=== PATIENT | female | born 1970 | race Caucasian/White ===

== ENCOUNTER 2017-07-03 16:37 | Inpatient (IN) | payer OTHER ==
[2017-07-03 16:52] VITALS: BMI 47.5
--- NOTE | 2017-07-03 17:38 | PDOC ---
History of Present Illness - General Chief Complaint: Wound Infection Stated Complaint: INFECTION Time Seen by Provider: 07/03/17 17:36 - History of Present Illness Initial Comments: 07/03/17 18:00 The patient is a 46 year old female with no significant PMH who presents for evaluation of right lower leg infection. The patient reports onset of symptoms 6 days ago in the [place] with redness to the right lower extremity. She was placed on antibiotics that she dose not know in the [facility] before traveling to the on 5 days ago. She reports fevers at home initial that have resolved since taking the antibiotics. However she notes worsening swelling in the lower extremity as well as worsening warmth and redness. She denies SOB, chest pain, abdominal pain, or changes with urination or bowel movements. Past History - Past Medical History Allergies/Adverse Reactions: Allergies Allergy/AdvReac Type Severity Reaction Status Date / Time No Known Allergies Allergy Verified 07/03/17 16:52 Home Medications: Ambulatory Orders NK [No Known Home Medication] 07/03/17 Thyroid Disease: No - Suicide/Smoking/Psychosocial Hx Smoking History: Unknown if ever smoked Have you smoked in the past 12 months: No Information on smoking cessation initiated: No Hx Alcohol Use: No Drug/Substance Use Hx: No Substance Use Type: None Review of Systems - Review of Systems Comments:: 07/03/17 18:45 Constitutional: Fevers, chills. No fatigue, malaise HEENT: No Rhinorrhea, nasal congestion, Cardiovascular: No chest pain, syncope, palpitations, lightheadedness Respiratory: No Cough, SOB, Hemoptysis, Gastrointestinal: No Abdominal pain, Nausea, Vomiting, Constipation, Diarrhea, Melena Genitourinary: No Dysuria, Frequency, Urgency, Hesitancy, Hematuria, Flank pain Musculoskeletal: No Myalgia, arthralgia Skin: Lower extremity skin infection. No rashes, bruising, pallor Neurologic: No Headache, Dizziness, Numbness, Weakness, or Tingling *Physical Exam - Vital Signs Last Vital Signs Temp Pulse Resp BP Pulse Ox 99.0 F 98 H 18 133/71 100 07/03/17 16:49 07/03/17 16:49 07/03/17 16:49 07/03/17 16:49 07/03/17 16:49 - Physical Exam Comments: 07/03/17 18:48 General Appearance: Nourished. No Apparent Distress HEENT: EOMI, AAMIR. No Pharyngeal Erythema, Tonsillar Exudate, Tonsillar Erythema Neck: No Cervical Lymphadenopathy Respiratory/Chest: Lungs Clear, Normal Breath Sounds. No Crackles, Rales, Rhonchi, Wheezing Cardiovascular: Regular Rhythm, Regular Rate. No Murmur, Gallops, Rubs Gastrointestinal/Abdominal: Normal Bowel Sounds, Soft. No Guarding, Rebound, Tenderness Musculoskeletal: No CVA Tenderness Extremity: Right lower extremity erythema and warmth around the calf with bullue and 2+ pitting edema. Normal Capillary Refill Integumentary: Normal Color, Dry, Warm Neurologic: Fully Oriented, Alert, Normal Mood/Affect, Normal Response, ED Treatment Course - LABORATORY CBC & Chemistry Diagram: 07/04/17 07:40 07/04/17 07:40 Medical Decision Making - Medical Decision Making 07/03/17 18:51 The patient is a 46 year old female with no significant PMH who presents for evaluation of right lower leg infection. Differential includes but not limited to: Epylsis, cellulitis, bullous impetigo, DVT. Given the physical examination of the patient's lower extremity with diffuse bullue and erythema, her symptoms are likely due to worsening eplylsis. We will obtain cbc, cmp, blood cultures, UA to evaluate. We will also obtain a DVT US to evaluate for DVT given her lower extremity edema and recent travel. We will treat her with clindamycin here in the ED. The patient will likely require admission for further management. We will continue to monitor and reassess. *DC/Admit/Observation/Transfer Diagnosis at time of Disposition: admitted
[2017-07-03] MEDS ORDERED: CLINDAMYCIN 600MG PREMIX IVPB 50 ML IVPB ONE ×2 (18:24→18:38)
[2017-07-03 18:58] LABS: MCH 23.7 pg (25.7-33.7); MCHC 31.8 g/dl (32.0-36.0); MEAN CELL VOLUME 74.7 fl (80-96); MEAN PLT VOLUME 8.3 fl (7.5-11.1); NEUTROPHILS 53.1 % (42.8-82.8); PLATELET COUNT 355 K/MM3 (134-434); RDW 16.5 % (11.6-15.6); WHITE BLOOD COUNT 8.6 K/mm3 (4.0-10.0)
[2017-07-03 19:01] LABS: URINE APPEARANCE CLEAR; URINE BILIRUBIN NEGATIVE (NEGATIVE); URINE BLOOD 2+ (NEGATIVE); URINE COLOR LTYELLOW; URINE GLUCOSE (UA) NEGATIVE (NEGATIVE); URINE KETONE NEGATIVE (NEGATIVE); URINE NITRITE NEGATIVE (NEGATIVE); URINE PROTEIN NEGATIVE (NEGATIVE); URINE UROBILINOGEN NEGATIVE mg/dL (0.2-1.0)
--- NOTE | 2017-07-03 19:04 | PDOC ---
*Physical Exam - Vital Signs Last Vital Signs Temp Pulse Resp BP Pulse Ox 99.0 F 98 H 18 133/71 100 07/03/17 16:49 07/03/17 16:49 07/03/17 16:49 07/03/17 16:49 07/03/17 16:49 ED Treatment Course - LABORATORY CBC & Chemistry Diagram: 07/06/17 06:30 07/04/17 07:40 - Medications Given in the ED: ED Medications Discontinued Medications Generic Name Dose Route Start Last Admin Trade Name Freq PRN Reason Stop Dose Admin Clindamycin Phosphate 50 mls @ 100 mls/hr 07/03/17 18:24 07/03/17 18:39 Cleocin 600 Mg Premix Ivpb - IVPB 07/03/17 18:53 100 mls/hr ONCE ONE Administration Medical Decision Making - Medical Decision Making 07/03/17 19:02 Patient signed out to me by Dr. Mart, day team. The patient is a 46F with no PMH who presents with suspected erysipelas and cellulitis. F/u for labs, DVT U/S. Most likely dispo: admit to obs for IV abx. Has received IV clinda in ED. 07/03/17 20:04 US negative for DVT. Will page admitting team for IV abx, obs admission. 07/03/17 22:18 Patient signed out to hospitalist team for IV abx. *DC/Admit/Observation/Transfer Diagnosis at time of Disposition: admitted, Erysipelas
[2017-07-03 19:06] LABS: URINE HYALINE CAST 1 /lpf; URINE MUCUS RARE; URINE RBC 2 /hpf (0-3); URINE WBC 1 /hpf (3-5)
[2017-07-03 19:22] LABS: ALBUMIN 3.1 g/dl (3.4-5.0); ALK PHOS 160 U/L (45-117); ANION GAP 7 (8-16); BILIRUBIN,TOTAL 0.1 mg/dL (0.2-1.0); CALCIUM 8.9 mg/dL (8.5-10.1); CO2 29 mmol/L (21-32); CREATININE 0.6 mg/dL (0.55-1.02); GLUCOSE,RANDOM 105 mg/dL (74-106); SGOT/AST 14 U/L (15-37); SGPT/ALT 22 U/L (12-78); TOT PROT 7.5 g/dl (6.4-8.2)
[2017-07-03 19:23] LABS: CPK 55 IU/L (26-192); TROPONIN I < 0.02 ng/ml (0.00-0.05)
--- NOTE | 2017-07-03 20:09 | PDOC ---
Attending Attestation - Resident Resident Name: Antolin Mart - ED Attending Attestation I have performed the following: I have examined & evaluated the patient, The case was reviewed & discussed with the resident, I agree w/resident's findings & plan, Exceptions are as noted - HPI HPI: 07/03/17 20:04 46-year-old female presents with atraumatic right lower extremity erythema and swelling with some skin desquamation and clear drainage. - Physicial Exam PE: 07/03/17 20:04 Patient is awake and alert, with low-grade fever, nontoxic appearing; CARD: Normal S1, S2; no murmurs, rubs, or gallops RESP: Normal chest excursion with respiration; breath sounds clear and equal bilaterally; no wheezes, rhonchi, or rales ABD: Soft, non-distended; non-tender; no palpable organomegaly, no palpable hernias EXT: RLE: + well demarcated elevated erythematous lessions to the lower leg, with several clear bullae formations, warm and tender to touch, with a small area of disquamation c/w erysepelas SKIN: Warm, see above NEURO: No focal neurological deficiencies. - Medical Decision Making 07/03/17 20:08 46-year-old female presents to the ER with significant right lower extremity erysipelous. Will rule out DVT by Doppler ultrasound. Will obtain CBC/CMP/blood cultures. We'll administer clindamycin. Will place her knob's for IV antibiotic therapy.
[2017-07-03] MEDS ORDERED: BACITRACIN 0.9 GM PACKET ONE (20:14)
[2017-07-03 21:17] LABS: URINE LEUK ESTERASE Negative (NEGATIVE)
--- NOTE | 2017-07-03 22:34 | HP ---
CHIEF COMPLAINT: rash PCP: none HISTORY OF PRESENT ILLNESS: The pt is a 46 year old Fijian speaking female with PMH of lower extremity rash /infection that has been treated for several years. She presents to the hospital complaining of RLE rash, redness that started 6 days ago when she was in [place]. 2-3 days ago she noticed that the blister that was present on the skin ruptured draining clear/yellowish fluid. She measured temperature at home 102 F and had associated chills. The pt reports pain in RLE , especially around the ankle that is constant, 7/10, radiating up. She states that has been treated for infection in RLE for many year with Ampicillin and her infection keeps coming back.The pt denies trauma. She denies SOB, chest pain, abdominal pain, dysuria, muscle pain, joint pain. History was taken when her daughter was at bedside. ER course was notable for: (1)Alk Phos (2)Clindamycin (3)US LE Recent Travel: [place] PAST MEDICAL HISTORY: SRecurrent skin infection in LE PAST SURGICAL HISTORY: none Social History: Smoking:no Alcohol:no Drugs: no Family History: Mother: skin infection Father: healthy Allergies No Known Allergies Allergy (Verified 07/03/17 16:52) HOME MEDICATIONS: Home Medications Medication Instructions Recorded NK [No Known Home Medication] 07/03/17 REVIEW OF SYSTEMS CONSTITUTIONAL: Absent: fever, chills, diaphoresis, generalized weakness, malaise, loss of appetite, weight change HEENT: Absent: rhinorrhea, nasal congestion, throat pain, throat swelling, difficulty swallowing, mouth swelling, ear pain, eye pain, visual changes CARDIOVASCULAR: Absent: chest pain, syncope, palpitations, irregular heart rate, lightheadedness , peripheral edema RESPIRATORY: Absent: cough, shortness of breath, dyspnea with exertion, orthopnea, wheezing, stridor, hemoptysis GASTROINTESTINAL: Absent: abdominal pain, abdominal distension, nausea, vomiting, diarrhea, constipation, melena, hematochezia GENITOURINARY: Absent: dysuria, frequency, urgency, hesitancy, hematuria, flank pain, genital pain MUSCULOSKELETAL: Absent: myalgia, arthralgia, joint swelling, back pain, neck pain SKIN: rash, ruptured blister, Absent: itching, pallor HEMATOLOGIC/IMMUNOLOGIC: Absent: easy bleeding, easy bruising, lymphadenopathy, frequent infections ENDOCRINE: Absent: unexplained weight gain, unexplained weight loss, heat intolerance, cold intolerance NEUROLOGIC: Absent: headache, focal weakness or paresthesias, dizziness, unsteady gait, seizure, mental status changes, bladder or bowel incontinence PSYCHIATRIC: Absent: anxiety, depression, suicidal or homicidal ideation, hallucinations. PHYSICAL EXAMINATION GENERAL: Awake, alert, and fully oriented, in no acute distress. HEAD: Normal with no signs of trauma. EYES: Pupils equal, round and reactive to light, extraocular movements intact, sclera anicteric, conjunctiva clear. No lid lag. EARS, NOSE, THROAT: Ears normal, nares patent, oropharynx clear without exudates. Moist mucous membranes. NECK: Normal range of motion, supple without lymphadenopathy, JVD, or masses. LUNGS: Breath sounds equal, clear to auscultation bilaterally. No wheezes, and no crackles. No accessory muscle use. HEART: Regular rate and rhythm, normal S1 and S2 without murmur, rub or gallop. ABDOMEN: Soft, nontender, not distended, normoactive bowel sounds, no guarding, no rebound, no masses. No hepatomegaly or splenomegaly. MUSCULOSKELETAL: Normal range of motion at all joints. No bony deformities or tenderness. No CVA tenderness. UPPER EXTREMITIES: 2+ pulses, warm, well-perfused. No cyanosis. No clubbing. No peripheral edema. LOWER EXTREMITIES: 2+ pulses, warm, well-perfused. No calf tenderness. No peripheral edema. NEUROLOGICAL: Cranial nerves II-XII intact. Normal speech. Normal gait. PSYCHIATRIC: Cooperative. Good eye contact. Appropriate mood and affect. SKIN: Warm, dry, normal turgor, ruptured blister, superficial ulcer draining small amount of clear fluid, posterior RLE above ankle, redness and warmth from ankle to knee ASSESSMENT/PLAN: The pt is a 46 year old Fijian speaking female with PMH of lower extremity rash /infection that has been treated for several years. She presents to the hospital complaining of RLE rash, redness that started 6 days. She is admitted for erysipelas/cellulitis. Right lower extremity erysipelas/cellulitis-recurrent: -pt was given Clindamycin in ED -ordered wound culture, -will give Vancomucin 1500 mg and Ceftriaxone 2 g qd -f/u blood cultures -f/u ID recommendations -US LE negative for DVT F/E/N: no/no changes/Regula DVT PPX: Heparin sc Disposition med surg Problem List - Problem (1) Erysipelas of lower extremity Code(s): A46 - ERYSIPELAS (2) Cellulitis Code(s): L03.90 - CELLULITIS, UNSPECIFIED Visit type - Emergency Visit Emergency Visit: Yes ED Registration Date: 07/03/17 Care time: The patient presented to the Emergency Department on the above date and was hospitalized for further evaluation of their emergent condition. - New Patient This patient is new to me today: Yes Date on this admission: 07/04/17 - Critical Care Critical Care patient: No
[2017-07-03] MEDS ORDERED: VANCOMYCIN 1,500 MG in DEXTROSE 5%-WATER - 500 ML IVPB ONE (23:53)
--- NOTE | 2017-07-04 01:08 | PN ---
Teaching Attending Note Name of Resident: Marilyn Chery ATTENDING PHYSICIAN STATEMENT I saw and evaluated the patient. Chart, data, and imaging reviewed. I reviewed the resident's note and discussed the case with the resident. I agree with the resident's findings and plan as documented with modifications below. SUBJECTIVE: 46yo woman from with recurrent right lower extremity cellulitis. SHe reports that on Wednesday she experienced subjective fever and chills, worsening right lower extremity erythema. Pt reported regular single time injections of ampicillin for right leg infection. Denied any trauma to site or insect bites. She states that her mother has a similar condition. OBJECTIVE: Last Vital Signs Temp Pulse Resp BP Pulse Ox 98.7 F 74 18 125/72 98 07/03/17 23:25 07/03/17 23:25 07/03/17 23:25 07/03/17 23:25 07/03/17 23:35 heent- AT, nc, moist oral mucosa neck - supple, no masses cv s1+s2+ RRR chest cta b/l abdome soft, nt, obese ext- right lower extremity well demarcated erythematous lesions, warm to touch, mild tenderness to pressure LLE duplex US- negative for DVT Abnormal Lab Results 07/03/17 07/03/17 07/03/17 18:30 18:30 18:50 MCV 74.7 L MCH 23.7 L MCHC 31.8 L RDW 16.5 H Eosinophils % 5.0 H Anion Gap 7 L Total Bilirubin 0.1 L AST 14 L Alkaline Phosphatase 160 H Albumin 3.1 L Urine Blood 2+ H ASSESSMENT AND PLAN: #Recurrent right lower extremity erysypelas/cellultis, weeping, localized to leg. S/p clindamycin in ER. -admit to med/surg -wound culture ordered -blood cx ordered x2 -vancomycin 1.5g q12hrs -ceftriaxone 2g IV q24hrs -ID consult in am #DVT ppx - heparin sc #diet -low fat diet
[2017-07-04] MEDS: ACETAMINOPHEN 325 MG TABLET (FP) PO PRN (02:22)
[2017-07-04 08:26] LABS: MCH 23.7 pg (25.7-33.7); MCHC 31.4 g/dl (32.0-36.0); MEAN CELL VOLUME 75.6 fl (80-96); MEAN PLT VOLUME 7.7 fl (7.5-11.1); PLATELET COUNT 339 K/MM3 (134-434); RDW 16.5 % (11.6-15.6); WHITE BLOOD COUNT 7.5 K/mm3 (4.0-10.0)
[2017-07-04 09:00] LABS: ANION GAP 8 (8-16); CALCIUM 8.4 mg/dL (8.5-10.1); CO2 27 mmol/L (21-32); CREATININE 0.6 mg/dL (0.55-1.02); GLUCOSE,RANDOM 73 mg/dL (74-106)
[2017-07-04] MEDS ORDERED: FLU VACCINE QUAD 60 MCG/0.5 ML (MDV 17-18) IM ONE (10:00)
[2017-07-04] MEDS: CEFTRIAXONE 2 GM in DEXTROSE 5%-WATER - 100 ML IVPB SCH (10:06)
[2017-07-04] MEDS: HEPARIN NA (PORCINE) 5,000 UNITS/ML 1ML VIAL SQ SCH ×2 (10:07→21:18)
--- NOTE | 2017-07-04 12:38 | PN ---
Physical Exam: SUBJECTIVE: Patient seen and examined. She denies pain in right leg, chills. OBJECTIVE: Vital Signs Period Temp Pulse Resp BP Sys/De Leon Pulse Ox Last 24 Hr 97.9 F-98.7 F 74-83 18-18 125-136/62-72 98-98 GENERAL: The patient is awake, alert, and fully oriented, in no acute distress. LUNGS: Breath sounds equal, clear to auscultation bilaterally, no wheezes, no crackles, no accessory muscle use. HEART: Regular rate and rhythm, S1, S2 without murmur, rub or gallop. ABDOMEN: Soft, nontender, nondistended, normoactive bowel sounds, no guarding, no rebound, no hepatosplenomegaly, no masses. EXTREMITIES: 2+ pulses, warm, well-perfused, no edema. Erythema of lower right leg with blistering. Laboratory Results - last 24 hr 07/04/17 07/04/17 07:40 07:40 WBC 7.5 RBC 4.64 Hgb 11.0 Hct 35.1 MCV 75.6 L MCH 23.7 L MCHC 31.4 L RDW 16.5 H Plt Count 339 MPV 7.7 Sodium 138 Potassium 4.6 Chloride 103 Carbon Dioxide 27 Anion Gap 8 BUN 14 Creatinine 0.6 Random Glucose 73 L D Calcium 8.4 L Active Medications Generic Name Dose Route Start Last Admin Trade Name Freq PRN Reason Stop Dose Admin Acetaminophen 650 mg 07/03/17 22:25 07/04/17 02:22 Tylenol - PO 650 mg Q6H PRN Administration FEVER OR PAIN Bacitracin/Polymyxin B Sulfate 1 applic 07/04/17 11:00 Polysporin Ointment - TP DAILY [facility] Heparin Sodium (Porcine) 5,000 unit 07/04/17 10:00 07/04/17 10:07 Heparin - SQ 5,000 unit BID MAXIMILIAN Administration Ceftriaxone Sodium 2 gm/ 100 mls @ 200 mls/hr 07/04/17 10:07/04/17 10:06 Dextrose IVPB 200 mls/hr DAILY MAXIMILIAN Administration ASSESSMENT/PLAN: This is a 46 year old woman with a history of recurrent RLE infection who presented to the ER with redness and blistering of RLE with fever and chills at home. 1. Erysipelas of RLE - Continue Rocephin - Given Clindamycin, Vancomycin last night - Bacitracin to open wound - ID consult Visit type - Emergency Visit Emergency Visit: Yes ED Registration Date: 07/03/17 Care time: The patient presented to the Emergency Department on the above date and was hospitalized for further evaluation of their emergent condition. - New Patient This patient is new to me today: Yes Date on this admission: 07/04/17 - Critical Care Critical Care patient: No - Discharge Referral Referred to [facility] Med P.C.: No
--- NOTE | 2017-07-04 13:32 | PN ---
Progress Note (short form) - Note Progress Note: ID Consult dictated Recurrent cellulitis R LE Possible sepsis secondary to skin source Await c/s Empiric vancomycin/ ceftriaxone Elevation
--- NOTE | 2017-07-04 13:58 | CONS ---
DATE OF CONSULTATION: DATE OF DICTATION: 07/04/2017 The patient is a 46-year-old female with a history of cellulitis of the right lower extremity in the past, now admitted with recurrent cellulitis. She is Icelandic speaking. She was in the [place] last week, where she developed erythema involving the right lower extremity. She reports that this is recurrent in nature. She was prescribed an antibiotic, the name of which she was not certain of. She traveled back to the [place] approximately 5 days ago. She complained of worsening erythema, warmth and swelling. She also complained of fever to 102 and chills. She was seen in the emergency room, where a Doppler exam was performed and was negative for DVT. She was treated with clindamycin. She denies any insect or animal bites or scratches. She states she had not been swimming in the ocean. Past medical history negative. No known allergies. LABORATORY DATA: White count 7.5, hematocrit 35.1, platelet count 339. Creatinine 0.6. Urinalysis: 1 white cell. PHYSICAL EXAMINATION: General: She is awake and alert. She is in no acute distress. Vital Signs: Temperature 98.1. Blood pressure 136/66. Pulse 74, regular. Respirations 18 per minute. Eyes: Sclerae anicteric. Heart Sounds: S1, S2. Lungs: Clear. Abdomen: Obese, soft, nontender. Extremities: Examination of the right lower extremity, there was confluent erythema involving the right lower extremity, primarily in the area of the calf. It is bullous in nature with some sloughing of the overlying skin. There are smaller patches present on the lateral aspect of the leg. There is no fluctuance or crepitus. No lymphangitic streaking. No tinea pedis present. IMPRESSION: 1. Recurrent cellulitis of the right lower extremity. 2. Possible sepsis secondary to skin source. Await culture results. Empiric antibiotic coverage with vancomycin and ceftriaxone. Elevation. Analgesics. Will follow. Thank you for the kind referral. KEEGAN ARREGUIN M.D. [id number]
[2017-07-04] MEDS: BACITRACIN/POLYMYXIN B SULFATE 15 GM TUBE TP SCH (14:40)
[2017-07-04] MEDS: VANCOMYCIN 1,000 MG in DEXTROSE 5%-WATER - 250 ML IVPB SCH (14:41)
[2017-07-05] MEDS: VANCOMYCIN 1,000 MG in DEXTROSE 5%-WATER - 250 ML IVPB SCH ×2 (01:35→15:05)
[2017-07-05] MEDS ORDERED: PT OWN MED DRAWER 7, Y5N ONE ×8 (09:12→16:24)
[2017-07-05] MEDS: HEPARIN NA (PORCINE) 5,000 UNITS/ML 1ML VIAL SQ SCH ×2 (09:27→21:57)
[2017-07-05] MEDS: CEFTRIAXONE 2 GM in DEXTROSE 5%-WATER - 100 ML IVPB SCH (09:28)
[2017-07-05] MEDS: ACETAMINOPHEN 325 MG TABLET (FP) PO PRN (09:45)
--- NOTE | 2017-07-05 11:55 | PN ---
Physical Exam: SUBJECTIVE:Patient presented with recurrent cellulitis R LE,Possible sepsis secondary to skin source. I saw and examined her at bedside. No acute events over night. She denies fever, chills, N/V/C/D. She denies any abdominal pain or urinary symptoms. She is on empiric vancomycin/ ceftriaxone with Await c/s OBJECTIVE: Vital Signs Period Temp Pulse Resp BP Sys/De Leon Pulse Ox Last 24 Hr 97.2 F-98.5 F 71-84 18-18 100-136/53-75 98 GENERAL: The patient is awake, alert, and fully oriented, in no acute distress. HEAD: Normal with no signs of trauma. EYES: sclera anicteric, conjunctiva clear. No ptosis. ENT: moist mucous membranes. LUNGS: Breath sounds equal, clear to auscultation bilaterally, no wheezes, no crackles, no accessory muscle use. HEART: Regular rate and rhythm, S1, S2 without murmur, rub or gallop. ABDOMEN: Soft, nontender, nondistended, normoactive bowel sounds, no guarding, no rebound, EXTREMITIES: warm, well-perfused, no edema. R LE covered with bandar NEUROLOGICAL: Good mentation PSYCH: Normal mood, normal affect. SKIN: Warm, dry, no rashes or lesions noted Active Medications Generic Name Dose Route Start Last Admin Trade Name Freq PRN Reason Stop Dose Admin Acetaminophen 650 mg 07/03/17 22:25 07/05/17 09:45 Tylenol - PO 650 mg Q6H PRN Administration FEVER OR PAIN Bacitracin/Polymyxin B Sulfate 1 applic 07/04/17 11:00 07/04/17 14:40 Polysporin Ointment - TP 1 applic DAILY MAXIMILIAN Administration Heparin Sodium (Porcine) 5,000 unit 07/04/17 10:00 07/05/17 09:27 Heparin - SQ 5,000 unit BID MAXIMILIAN Administration Ceftriaxone Sodium 2 gm/ 100 mls @ 200 mls/hr 07/04/17 10:00 07/05/17 09:28 Dextrose IVPB 200 mls/hr DAILY [facility]ILIAN Administration Vancomycin HCl 1,000 mg/ 250 mls @ 166.667 mls/hr 07/04/17 13:45 07/05/17 01:35 Dextrose IVPB 166.667 mls/hr Q12H MAXIMILIAN Administration Influenza Virus Vaccine Quadrival 60 mcg 07/05/17 12:00 Flulaval Quad [id number] IM 07/05/17 12:01 .ONCE ONE CBC, BMP 07/04/17 07:40 07/04/17 07:40 ASSESSMENT/PLAN: The pt is a 46 year old Omani speaking female with PMH of lower extremity rash /infection that has been treated for several years. She presents to the hospital complaining of RLE rash, redness that started 6 days. She is admitted for erysipelas/cellulitis. Right lower extremity erysipelas/cellulitis-recurrent: * pt was given Clindamycin in ED * ordered wound culture, * will give Vancomucin 1500 mg and Ceftriaxone 2 g qd * f/u blood cultures * f/u ID recommendations * US LE negative for DVT #F/E/N: no/no changes/Regular diet #DVT PPX: Heparin sc #Disposition med surg Visit type - Emergency Visit Emergency Visit: Yes ED Registration Date: 07/04/17 Care time: The patient presented to the Emergency Department on the above date and was hospitalized for further evaluation of their emergent condition. - New Patient This patient is new to me today: Yes Date on this admission: 07/07/17 - Critical Care Critical Care patient: No
[2017-07-05] MEDS ORDERED: FLU VACCINE QUAD 60 MCG/0.5 ML (MDV 17-18) IM ONE (12:00)
[2017-07-05] MEDS: BACITRACIN/POLYMYXIN B SULFATE 15 GM TUBE TP SCH (13:43)
--- NOTE | 2017-07-05 18:21 | PN ---
Teaching Attending Note Name of Resident: Shane Cintron ATTENDING PHYSICIAN STATEMENT I saw and evaluated the patient. I reviewed the resident's note and discussed the case with the resident. I agree with the resident's findings and plan as documented. SUBJECTIVE: OBJECTIVE: Vital Signs Period Temp Pulse Resp BP Sys/De Leon Pulse Ox Last 24 Hr 97.2 F-98.5 F 69-84 18-18 100-136/53-75 98-100 Current Medications Generic Name Dose Route Start Last Admin Trade Name Freq PRN Reason Stop Dose Admin Acetaminophen 650 mg 07/03/17 22:25 07/05/17 09:45 Tylenol - PO 650 mg Q6H PRN Administration FEVER OR PAIN Bacitracin/Polymyxin B Sulfate 1 applic 07/04/17 11:00 07/05/17 13:43 Polysporin Ointment - TP 1 applic DAILY MAXIMILIAN Administration Heparin Sodium (Porcine) 5,000 unit 07/04/17 10:00 07/05/17 09:27 Heparin - SQ 5,000 unit BID MAXIMILIAN Administration Ceftriaxone Sodium 2 gm/ 100 mls @ 200 mls/hr 07/04/17 10:00 07/05/17 09:28 Dextrose IVPB 200 mls/hr DAILY MAXIMILIAN Administration Vancomycin HCl 1,000 mg/ 250 mls @ 166.667 mls/hr 07/04/17 13:45 07/05/17 15:05 Dextrose IVPB 166.667 mls/hr Q12H MAXIMILIAN Administration ASSESSMENT AND PLAN:
--- NOTE | 2017-07-05 21:03 | PN ---
Progress Note, Physician History of Present Illness: Via category analyst reports less leg pain No fever/ chills - Current Medication List Current Medications: Active Medications Acetaminophen (Tylenol -) 650 mg PO Q6H PRN PRN Reason: FEVER OR PAIN Last Admin: 07/05/17 09:45 Dose: 650 mg Bacitracin/Polymyxin B Sulfate (Polysporin Ointment -) 1 applic TP DAILY [facility] Last Admin: 07/05/17 13:43 Dose: 1 applic Heparin Sodium (Porcine) (Heparin -) 5,000 unit SQ BID MAXIMILIAN Last Admin: 07/05/17 09:27 Dose: 5,000 unit Ceftriaxone Sodium 2 gm/ (Dextrose) 100 mls @ 200 mls/hr IVPB DAILY [facility]ILIAN Last Admin: 07/05/17 09:28 Dose: 200 mls/hr Vancomycin HCl 1,000 mg/ (Dextrose) 250 mls @ 166.667 mls/hr IVPB Q12H MAXIMILIAN Last Admin: 07/05/17 15:05 Dose: 166.667 mls/hr - Objective Vital Signs: Vital Signs Temperature 98.1 F 07/05/17 18:43 Pulse Rate 79 07/05/17 18:43 Respiratory Rate 20 07/05/17 18:43 Blood Pressure 105/52 07/05/17 18:43 O2 Sat by Pulse Oximetry (%) 100 07/05/17 10:00 Constitutional: Yes: No Distress Eyes: Yes: Conjunctiva Clear Cardiovascular: Yes: Regular Rate and Rhythm, S1, S2 Respiratory: Yes: CTA Bilaterally Gastrointestinal: Yes: Normal Bowel Sounds, Soft Extremities: Yes: Other (decreased erythema and swelling R LE) Assessment/Plan Cellulitis R LE improved Continue vancomycin/ ceftriaxone Elevation Discussed with family at bedside
[2017-07-06] MEDS ORDERED: PT OWN MED DRAWER 7, Y5N ONE ×3 (01:50→13:51)
[2017-07-06] MEDS: VANCOMYCIN 1,000 MG in DEXTROSE 5%-WATER - 250 ML IVPB SCH ×2 (02:01→13:35)
--- NOTE | 2017-07-06 06:44 | PN ---
Physical Exam: SUBJECTIVE: Patient seen and examined at bedside. No acute events over night. She denies any fever, chills , N/V/D/C. leg pain is better. OBJECTIVE: Vital Signs Period Temp Pulse Resp BP Sys/De Leon Pulse Ox Last 24 Hr 98.0 F-98.5 F 68-79 18-20 100-126/52-73 99-100 GENERAL: The patient is awake, alert, and fully oriented, in no acute distress. HEAD: Normal with no signs of trauma. EYES: sclera anicteric, conjunctiva clear. No ptosis. ENT: moist mucous membranes. LUNGS: Breath sounds equal, clear to auscultation bilaterally, no wheezes, no crackles, no accessory muscle use. HEART: Regular rate and rhythm, S1, S2 without murmur, rub or gallop. ABDOMEN: Obese,soft, nontender, nondistended, normoactive bowel sounds, no guarding, no rebound EXTREMITIES: warm, well-perfused, no edema. cellulitis with erythema on the right leg up to beneath the knee. NEUROLOGICAL: Good mentation PSYCH: Normal mood, normal affect. SKIN: Warm, dry, no rashes or lesions noted Active Medications Generic Name Dose Route Start Last Admin Trade Name Freq PRN Reason Stop Dose Admin Acetaminophen 650 mg 07/03/17 22:25 07/05/17 09:45 Tylenol - PO 650 mg Q6H PRN Administration FEVER OR PAIN Bacitracin/Polymyxin B Sulfate 1 applic 07/04/17 11:00 07/05/17 13:43 Polysporin Ointment - TP 1 applic DAILY MAXIMILIAN Administration Heparin Sodium (Porcine) 5,000 unit 07/04/17 10:00 07/05/17 21:57 Heparin - SQ 5,000 unit BID MAXIMILIAN Administration Ceftriaxone Sodium 2 gm/ 100 mls @ 200 mls/hr 07/04/17 10:00 07/05/17 09:28 Dextrose IVPB 200 mls/hr DAILY MAXIMILIAN Administration Vancomycin HCl 1,000 mg/ 250 mls @ 166.667 mls/hr 07/04/17 13:45 07/06/17 02:01 Dextrose IVPB 166.667 mls/hr Q12H MAXIMILIAN Administration ASSESSMENT/PLAN: The pt is a 46 year old Italian speaking female with PMH of lower extremity rash /infection that has been treated for several years. She presents to the hospital complaining of RLE rash, redness that started 6 days. She is admitted for erysipelas/cellulitis. Right lower extremity erysipelas/cellulitis-recurrent: * pt was given Clindamycin in ED * ordered wound culture, * will give Vancomucin 1500 mg and Ceftriaxone 2 g qd * f/u blood cultures * f/u ID recommendations * US LE negative for DVT #F/E/N: no/no changes/Regular diet #DVT PPX: Heparin sc #Disposition med surg Visit type - Emergency Visit Emergency Visit: Yes ED Registration Date: 07/04/17 Care time: The patient presented to the Emergency Department on the above date and was hospitalized for further evaluation of their emergent condition. - New Patient This patient is new to me today: No - Critical Care Critical Care patient: No - Discharge Referral Referred to [facility] Med P.C.: No
[2017-07-06 07:29] LABS: MCHC 31.7 g/dl (32.0-36.0); MEAN CELL VOLUME 75.8 fl (80-96); MEAN PLT VOLUME 7.9 fl (7.5-11.1); PLATELET COUNT 474 K/MM3 (134-434); RDW 16.6 % (11.6-15.6); WHITE BLOOD COUNT 11.1 K/mm3 (4.0-10.0)
[2017-07-06] MEDS: BACITRACIN/POLYMYXIN B SULFATE 15 GM TUBE TP SCH (09:08)
[2017-07-06] MEDS: HEPARIN NA (PORCINE) 5,000 UNITS/ML 1ML VIAL SQ SCH ×2 (09:08→21:22)
[2017-07-06] MEDS: CEFTRIAXONE 2 GM in DEXTROSE 5%-WATER - 100 ML IVPB SCH (09:08)
[2017-07-06] MEDS: ACETAMINOPHEN 325 MG TABLET (FP) PO PRN (09:16)
--- NOTE | 2017-07-06 14:54 | PN ---
Teaching Attending Note Name of Resident: Shane Cintron ATTENDING PHYSICIAN STATEMENT I saw and evaluated the patient. I reviewed the resident's note and discussed the case with the resident. I agree with the resident's findings and plan as documented. SUBJECTIVE:swelling and pain has improved dramatically since yesterday. states she noticed she had a pimple on her leg while in [place] which she popped with a "sterile" toothpick. while on the plane her leg swelled a lot and became very painful. denies CP, SOB, fever, chills, hemoptysis, N/V/C/D no PMH but has not seen a doctor in "many years" OBJECTIVE: Last Vital Signs Temp Pulse Resp BP Pulse Ox 98.2 F 86 18 122/55 100 07/06/17 09:00 07/06/17 09:00 07/06/17 09:00 07/06/17 09:00 07/06/17 09:00 General NAD CV S1 S2 RRR no murmur/rub/gallop Lungs CTA B/L no wheezing/rales/rhonchi Extremiteis erythema and warmth to RLE skin breakage along the posterior lower leg ASSESSMENT AND PLAN: 46 yo F with PMH of recurrent RLE infection who presented to the ER with redness and blistering of RLE with fever and chills at home. 1. Erysipelas of RLE- improved per pt. WCX with +GNR. will check doppler to r/o DVT although low suspicion. check A1c to r/o diabetes. on Vanco and Ceftriaxone day 3. can likely d/c vanco. will f/u official Cx report. ID on board. cont pain control. can d/c home once c&s is available 2. DVT ppx- hep sq
--- NOTE | 2017-07-06 16:02 | PN ---
Progress Note, Physician History of Present Illness: Less leg pain Ambulating without pain Afebrile BC (-) Wound c/s klebsiella - Current Medication List Current Medications: Active Medications Acetaminophen (Tylenol -) 650 mg PO Q6H PRN PRN Reason: FEVER OR PAIN Last Admin: 07/06/17 09:16 Dose: 650 mg Bacitracin/Polymyxin B Sulfate (Polysporin Ointment -) 1 applic TP DAILY [facility] Last Admin: 07/06/17 09:08 Dose: 1 applic Heparin Sodium (Porcine) (Heparin -) 5,000 unit SQ BID [facility] Last Admin: 07/06/17 09:08 Dose: 5,000 unit Ceftriaxone Sodium 2 gm/ (Dextrose) 100 mls @ 200 mls/hr IVPB DAILY [facility] Last Admin: 07/06/17 09:08 Dose: 200 mls/hr Vancomycin HCl 1,000 mg/ (Dextrose) 250 mls @ 166.667 mls/hr IVPB Q12H [facility] Last Admin: 07/06/17 13:35 Dose: 166.667 mls/hr - Objective Vital Signs: Vital Signs Temperature 97.9 F 07/06/17 14:22 Pulse Rate 85 07/06/17 14:22 Respiratory Rate 20 07/06/17 14:22 Blood Pressure 100/49 07/06/17 14:22 O2 Sat by Pulse Oximetry (%) 100 07/06/17 09:00 Constitutional: Yes: No Distress Eyes: Yes: Conjunctiva Clear Cardiovascular: Yes: Regular Rate and Rhythm, S1, S2 Respiratory: Yes: CTA Bilaterally Gastrointestinal: Yes: Normal Bowel Sounds, Soft, Abdomen, Obese. No: Tenderness Extremities: Yes: Other (decreased erythema LE) Labs: CBC, BMP 07/06/17 06:30 Assessment/Plan Cellulitis R LE improved May substitute levaquin 500mg po qd x 7d Elevation
[2017-07-07] MEDS ORDERED: PT OWN MED DRAWER 7, Y5N ONE ×2 (01:41→14:18)
[2017-07-07] MEDS: VANCOMYCIN 1,000 MG in DEXTROSE 5%-WATER - 250 ML IVPB SCH ×2 (01:49→14:20)
--- NOTE | 2017-07-07 06:52 | PN ---
Physical Exam: SUBJECTIVE: Patient seen and examined at bedside. No acute events over night. pain is controlled , leg redness is better. denies any fever, chills, N/V/D/C. OBJECTIVE: Vital Signs Period Temp Pulse Resp BP Sys/De Leon Pulse Ox Last 24 Hr 97.9 F-98.5 F 75-86 18-20 100-122/49-66 98-100 GENERAL: The patient is awake, alert, and fully oriented, in no acute distress. HEAD: Normal with no signs of trauma. EYES: sclera anicteric, conjunctiva clear. No ptosis. ENT: moist mucous membranes. LUNGS: Breath sounds equal, clear to auscultation bilaterally, no wheezes, no crackles, no accessory muscle use. HEART: Regular rate and rhythm, S1, S2 without murmur, rub or gallop. ABDOMEN: Obese,soft, nontender, nondistended, normoactive bowel sounds, no guarding, no rebound EXTREMITIES: warm, well-perfused, no edema. cellulitis with erythema on the right leg up to beneath the knee. NEUROLOGICAL: Good mentation PSYCH: Normal mood, normal affect. SKIN: Warm, dry, no rashes or lesions noted Laboratory Results - last 24 hr 07/06/17 06:30 WBC 11.1 H D RBC 5.10 Hgb 12.2 D Hct 38.7 MCV 75.8 L MCH 24.0 L MCHC 31.7 L RDW 16.6 H Plt Count 474 H D MPV 7.9 Active Medications Generic Name Dose Route Start Last Admin Trade Name Freq PRN Reason Stop Dose Admin Acetaminophen 650 mg 07/03/17 22:25 07/06/17 09:16 Tylenol - PO 650 mg Q6H PRN Administration FEVER OR PAIN Bacitracin/Polymyxin B Sulfate 1 applic 07/04/17 11:00 07/06/17 09:08 Polysporin Ointment - TP 1 applic DAILY MAXIMILIAN Administration Heparin Sodium (Porcine) 5,000 unit 07/04/17 10:00 07/06/17 21:22 Heparin - SQ 5,000 unit BID MAXIMILIAN Administration Ceftriaxone Sodium 2 gm/ 100 mls @ 200 mls/hr 07/04/17 10:00 07/06/17 09:08 Dextrose IVPB 200 mls/hr DAILY MAXIMILIAN Administration Vancomycin HCl 1,000 mg/ 250 mls @ 166.667 mls/hr 07/04/17 13:45 07/07/17 01:49 Dextrose IVPB 166.667 mls/hr Q12H MAXIMILIAN Administration ASSESSMENT/PLAN: The pt is a 46 year old Icelandic speaking female with PMH of lower extremity rash /infection that has been treated for several years. She presents to the hospital complaining of RLE rash, redness that started 6 days. She is admitted for erysipelas/cellulitis. Right lower extremity erysipelas/cellulitis-recurrent: * pt was given Clindamycin in ED * ordered wound culture, * will give Vancomucin 1500 mg and Ceftriaxone 2 g qd * f/u blood cultures * f/u ID recommendations * US LE negative for DVT #F/E/N: no/no changes/Regular diet #DVT PPX: Heparin sc #Disposition admit to med surg Visit type - Emergency Visit Emergency Visit: Yes ED Registration Date: 07/04/17 Care time: The patient presented to the Emergency Department on the above date and was hospitalized for further evaluation of their emergent condition. - New Patient This patient is new to me today: No - Critical Care Critical Care patient: No - Discharge Referral Referred to [facility] Med P.C.: No
[2017-07-07 07:45] LABS: MCHC 32.1 g/dl (32.0-36.0); MEAN CELL VOLUME 74.9 fl (80-96); MEAN PLT VOLUME 7.4 fl (7.5-11.1); PLATELET COUNT 370 K/MM3 (134-434); RDW 16.9 % (11.6-15.6); WHITE BLOOD COUNT 7.9 K/mm3 (4.0-10.0)
[2017-07-07 08:10] LABS: CALCIUM 8.9 mg/dL (8.5-10.1); GLUCOSE,RANDOM 81 mg/dL (74-106)
[2017-07-07 08:13] LABS: ANION GAP 6 (8-16); CO2 29 mmol/L (21-32); CREATININE 0.8 mg/dL (0.55-1.02)
[2017-07-07] MEDS: CEFTRIAXONE 2 GM in DEXTROSE 5%-WATER - 100 ML IVPB SCH (09:59)
[2017-07-07] MEDS: BACITRACIN/POLYMYXIN B SULFATE 15 GM TUBE TP SCH (10:00)
[2017-07-07] MEDS: HEPARIN NA (PORCINE) 5,000 UNITS/ML 1ML VIAL SQ SCH (10:00)
--- NOTE | 2017-07-07 12:28 | PN ---
Teaching Attending Note Name of Resident: Shane Cintron ATTENDING PHYSICIAN STATEMENT I saw and evaluated the patient. I reviewed the resident's note and discussed the case with the resident. I agree with the resident's findings and plan as documented. SUBJECTIVE:states pain has mostly resolved and dramatic improvement in swelling. denies CP, SOB, fever, chills, N/V/C/D OBJECTIVE: Last Vital Signs Temp Pulse Resp BP Pulse Ox 98.5 F 82 18 111/66 98 07/07/17 05:00 07/07/17 05:00 07/07/17 05:00 07/07/17 05:00 07/06/17 21:00 General NAD Extremiteis RLE erythema circumferential along the lower leg. +skin breakage, no drainage. no tenderness or warmth. ASSESSMENT AND PLAN: 46 yo F with PMH of recurrent RLE infection who presented to the ER with redness and blistering of RLE with fever and chills at home. 1. Erysipelas of RLE- improved. Wcx +klebsiella castle-sensitive. on Vanco and Ceftriaxone day 4. will convert to levaquin po for additional 7 days. doppler neg for DVT. A1c 5.4 2. DVT ppx- hep sq 3. d/c home. expressed need to f/u with PMD to establish care
--- NOTE | 2017-07-07 13:20 | DS ---
Physical Exam: SUBJECTIVE: Patient seen and examined at bedside. stable and ready to go home. OBJECTIVE: Vital Signs Period Temp Pulse Resp BP Sys/De Leon Pulse Ox Last 24 Hr 97.9 F-98.5 F 75-85 18-20 100-121/49-66 98 PHYSICAL EXAM GENERAL: The patient is awake, alert, and fully oriented, in no acute distress. HEAD: Normal with no signs of trauma. EYES: sclera anicteric, conjunctiva clear. No ptosis. ENT: moist mucous membranes. LUNGS: Breath sounds equal, clear to auscultation bilaterally, no wheezes, no crackles, no accessory muscle use. HEART: Regular rate and rhythm, S1, S2 without murmur, rub or gallop. ABDOMEN: Obese,soft, nontender, nondistended, normoactive bowel sounds, no guarding, no rebound EXTREMITIES: warm, well-perfused, no edema. cellulitis with erythema on the right leg up to beneath the knee. NEUROLOGICAL: Good mentation PSYCH: Normal mood, normal affect. SKIN: Warm, dry, no rashes or lesions noted LABS Laboratory Results - last 24 hr 07/07/17 07/07/17 07/07/17 06:30 06:30 06:30 WBC 7.9 RBC 4.87 Hgb 11.7 Hct 36.5 MCV 74.9 L MCH 24.0 L MCHC 32.1 RDW 16.9 H Plt Count 370 D MPV 7.4 L Sodium 137 Potassium 4.4 Chloride 102 Carbon Dioxide 29 Anion Gap 6 L BUN 12 Creatinine 0.8 D Random Glucose 81 Hemoglobin A1c % 5.7 Calcium 8.9 HOSPITAL COURSE: Date of Admission:07/04/17 Date of Discharge: 07/07/17 Ms Correa is a 46 yo F with recurrent right leg skin infections who presented to the ER with redness and blistering of RLE with subjective fever and chills. She was found to have erysipelas with wound culture + for castle-sensitive Klebsiella for which she was started on Vancomycin (to cover possible concomitant staph infection and ceftriaxone for 4 days in house with transition to po Levaquin at discharge to complete an additional 7 days of abx treatment. She had negative dopplers for DVT and an A1c of 5.4 At time of discharge she was ambulatory, without signs of systemic infection/ fevers and with plan to follow up with PCP Minutes to complete discharge: 45 Discharge Summary Reason For Visit: ERYSIPELAS Current Active Problems Cellulitis (Acute) Erysipelas (Acute) Erysipelas of lower extremity (Acute) Condition: Stable - Instructions Diet, Activity, Other Instructions: You have been admitted to the hospital due to infection in your right leg called cellulitis. You have been treated with antibiotics in the hospital and you will continue with antibiotic (Levaquin 500 mg)once a day for the next 7 days. You must finish the whole course of medication even if you begin to feel better. Please apply the bacitracin ointment as prescribed. Kimberly follow up with your primary care physician who you saw here, Dr. Jamie fraser, within a week. Please keep the infected leg clean and dry. Please resume your daily activity as tolerated If you develop fever, chills, or your symptoms worsen please return to the emergency room. Referrals: Thiago Miller MD [Staff Physician] - 1 Week (jamie fraser MD Fridays ) Disposition: HOME - Home Medications Comprehensive Discharge Medication List: Ambulatory Orders NK [No Known Home Medication] 07/03/17 This patient is new to me today: No Emergency Visit: Yes ED Registration Date: 07/04/17 Care time: The patient presented to the Emergency Department on the above date and was hospitalized for further evaluation of their emergent condition. Critical Care patient: No - Discharge Referral Referred to [id number] Med P.C.: No
[2017-07-07 14:34] VITALS: TEMP 97.9
[2017-07-07 15:29] VITALS: BP 107/54; PULSE 94
[2017-07-08] MEDS ORDERED: LEVOFLOXACIN 500 MG TABLET (FP) PO SCH (06:00)
== END 2017-07-07 16:06 | disposition home or self-care (01) | DRG 383 ==
LOC: JER 16:37 → JERBED 21:34 → J5S 23:11 → OBSVTOIN 07-04 16:53
PROVIDERS: ADMIT Internal Medicine; ATTEND Internal Medicine
DX: A46 Erysipelas (principal); L03.115 Cellulitis of right lower limb
CPT/HCPCS: 36415; 71010-TC; 80048; 80053; 81003; 81015; 82550; 83036; 84484; 84702; 85025; 85027; 87040; 87070; 87186; 87205; 90688; 93971-TC; 97116-GP; 97161-GP; 99284-25; G0008; G0378; J1644